=== PATIENT | female | born 1950 | race Caucasian/White ===

== ENCOUNTER 2017-02-04 20:33 | Inpatient (IN) | payer MEDICARE ==
[~2017-02-04] VITALS: Ht 162.6 cm; Wt 90.9 kg
[~2017-02-04 20:33] MED LIST: ESTR0.5T; MEDR2.5T7 PO
[2017-02-04 20:46] VITALS: BP 150/106; PULSE 109; RESP 18; O2SAT 100
[2017-02-04] MEDS ORDERED: 0.9% Sodium Chloride 1,000 ML IV ONE (21:04)
[2017-02-04] MEDS ORDERED: Ondansetron 2 mg/mL 2 mL Inj IVPUSH ONE (21:05)
--- NOTE | 2017-02-04 21:09 | ED.REPORT ---
HPI-Abd Pain F 40 and Over Date of Service Feb 04, 2017 ED Provider: Javi Richmond MD Pt is a generally healthy 66 y/o female w/ a hx of presumed SBO presenting to the ED c/o abdominal pain onset 12:00 today. She c/o associated nausea, vomiting , back pain, shaking. She was able to pass a small amount of gas today. Pt denies fever, chills. The patient had similar symptoms 1 year ago and was diagnosed with what she says was likely an SBO. Abdominal surgeries: cholecystectomy Nursing Notes Stated Complaint: ABDOMINAL PAIN Chief Complaint: Female Abdominal Pain Nursing Notes Reviewed: Yes Allergies: Coded Allergies: amoxicillin (Verified Allergy, Unknown, 02/04/17) clavulanic acid (Verified Allergy, Unknown, 02/04/17) erythromycin base (Verified Adverse Reaction, Severe, nausea,vomitting, ) Scheduled Medroxyprogesterone (Medroxyprogesterone) 2.5 Mg Tablet 2.5 MG PO DAILY Miscellaneous Medications Estradiol (Estradiol) 0.5 Mg Tablet General Time Seen by MD: 20:43 Chief Complaint Abdominal pain Hx Obtained From: Patient Arrived By: Walk-in Sudden in Onset?: No Onset Occurred: 5 - 8 hours ago Symptom Duration: Since onset Progression since Onset: Waxes and wanes Location: : Diffuse Quality: Painful Severity: Current: Moderate Severity: Maximum: Moderate Recent Healthcare: Previous diagnosis Similar Sx Previous: Yes Past Medical History Past Medical History Hx presumable SBO Denies others Past Surgical History Reports: Cholecystectomy, Tonsillectomy Smoking History Never Smoker Social History Alcohol Use: "Social" Drug Use: Denies drug use Ambulatory Status Independent Review of Systems Constitutional: Denies: Chills, Fever GI: Reports: Abdominal pain, Nausea, Vomiting Complete sys rev & neg: except as marked. Neurologic: Reports: Shaking Physical Exam Vital Signs Vital Signs (First) Date Time Temp Pulse Resp B/P Pulse Ox O2 Delivery O2 Flow Rate FiO2 02/04/17 20:46 36.7 109 18 150/106 100 Room Air Initial VS: Reviewed, Vital signs abnormal Head / Eyes: Atraumatic, Normocephalic, PERRL ENT: Mucous membranes moist, Conjunctiva normal, No scleral icterus Neck: Supple, Full range of motion Extremities: Vascular intact, Neuro intact, No swelling Skin: Warm, Dry, No cyanosis Neurologic: Alert, Oriented, Nonfocal Psychiatric: Mood/affect normal, Behavior normal, Normal thought content General/Constitutional: Awake, Alert, No acute distress, Cooperative, Not toxic appearing Appearance / Presentation: Positive: Uncomfortable Respiratory / Chest: Breath sounds NL, Breath sounds = bilat, No respiratory distress, No rales, No rhonchi, No wheezing, No stridor Cardiovascular: Heart rate NL, Regular rhythm, Heart sounds NL, No gallop, No murmurs, No rubs, Cap refill not delayed, Peripheral circulation NL Abdomen: Atraumatic, Soft, No guarding, No rebound, No palpable mass Tenderness/Guarding/Rebound: Positive: Tender diffuse (mild) Bowel Sounds / Distention: Positive: Bowel sounds hypoactive (mild), Bowel sounds tympanitic (mild), Distention mild Back: Full range of motion, Painless range of motion Interpretation & Diagnostics Lab Results Interpretation Result Diagram: 02/04/17210902/04/172109 Test 02/04/17 21:10 02/04/17 21:40 White Blood Count 13.5th/mm3 (3.8-10.1) Red Blood Count 4.70mil/mm3 (3.90-5.20) Hemoglobin 11.6g/dL (12.0-15.6) Hematocrit 36.9% (35.0-46.0) Mean Corpuscular Volume 78.5fL (81-100) Mean Corpuscular Hemoglobin 24.7pg (27.0-35.0) Mean Corpuscular Hemoglobin Concent 31.4% (32.0-37.0) Red Cell Distribution Width 14.5% (12.3-15.4) Platelet Count 424bil/L (150-400) Neutrophils (%) (Auto) 79.0% (40-74) Lymphocytes (%) (Auto) 13.7% (14-46) Monocytes (%) (Auto) 5.3% (4-12) Eosinophils (%) (Auto) 1.6% (0-5) Basophils (%) (Auto) 0.3% (0-3) Sodium Level 141mEq/L (134-144) Potassium Level 3.9mEq/L (3.5-5.2) Chloride Level 104mEq/L (97-108) Carbon Dioxide Level 22mmol/L (18-29) Blood Urea Nitrogen 18mg/dL (8-27) Creatinine 0.64mg/dL (0.57-1.00) Estimat Glomerular Filtration Rate 132mL/min (>59) Glucose Level 139mg/dL (60-99) Calcium Level 9.2mg/dL (8.5-10.1) Magnesium Level 2.2mg/dL (1.6-2.6) Total Bilirubin 0.4mg/dL (0.0-1.2) Aspartate Amino Transf (AST/SGOT) 13U/L (0-50) Alanine Aminotransferase (ALT/SGPT) 10U/L (0-32) Alkaline Phosphatase 130U/L (25-165) Total Protein 7.5g/dL (6.4-8.4) Albumin 4.2g/dL (3.4-5.0) Lipase 14U/L (13-60) Hold Monzon Top Tube Received (Received) Hold Urine Received (Received) ECG Interpretation Time: 23:23 Interpreted by: ED physician Normal ECG Interpretation: Normal ECG w/ rate of... (91), Normal rate, Normal sinus rhythm, No acute ischemic changes, Normal QRS, Normal axis, Normal intervals, No change from prior ECGs, Adequate tracing CT Abd / Pelvis Interpretation Impression: Mechanical small bowel obstruction noted with transition point somewhere in the right lower quadrant. Minimal ascites. No ectopic gas. 7 cm single dimension cystic lesion in the left ovary. Other findings above. Interpreted by Verito Pacheco MD Study type: Abdominal CT IV contrast Interpretation / Wet Read by: Interpret - Radiologist Re-Eval/Medical Decision Med Decision/Clinical Course In summary, the patient is a generally healthy 66-year-old female with history of remote cholecystectomy and small bowel obstruction approximately one year ago which was medically managed presents to the emergency department with vomiting, abdominal discomfort, inability to pass flatus and concerned that she may be developing another bowel obstruction. Here in the emergency department the patient was afebrile with stable vital signs and examination as above which was notable for mildly distended abdomen and decreased/high-pitched bowel sounds. Meds given: IV fluids, Zofran, Dilaudid, LR 100 mL/hr Labs notable as below: CBC: Leukocytosis of 13.5, HCT of 36.9 CMP: Unremarkable, LFTs and lipase within normal limits EKG: Normal ECG w/ rate of... (91), Normal rate, Normal sinus rhythm, No acute ischemic changes, Normal QRS, Normal axis, Normal intervals, No change from prior ECGs, Adequate tracing CT abd/pelvis: Impression: Mechanical small bowel obstruction noted with transition point somewhere in the right lower quadrant. Minimal ascites. No ectopic gas. 7 cm single dimension cystic lesion in the left ovary. Other findings above. Given above findings and clinical picture consistent with small bowel obstruction a nasogastric tube was placed. The patient was made NPO and placed on maintenance fluid. Patient was discussed with general surgery Dr. Berger who agreed to admit the patient. Patient remained comfortable and in no apparent distress and was admitted for further management. Re-Evaluation/Progress : Time of Eval: 23:33 Re-Evaluation/Progress Note: Pt rechecked. Informed pt of need for admission. Pt understands and agrees with plan for admission. All questions addressed. Consultation : Referral / Consult Name: Everett Berger MD Consulted With: Surgeon Call Returned at: 23:38 Formula Technician: Will see patient, Agrees with eval, Agrees with plan, Accepts admit Counseled Regarding: Diagnosis, Lab results, Need for admission Discharge & Departure Primary Impression: SBO (small bowel obstruction) Additional Impressions: Vomiting in adult patient Abdominal pain Abdominal location: unspecified location Qualified Code: R10.9 - Unspecified abdominal pain History of small bowel obstruction History of cholecystectomy Leukocytosis Leukocytosis type: unspecified Qualified Code: D72.829 - Elevated white blood cell count, unspecified Dehydration Disposition: ADMITTED TO HOSPITAL Discharge Condition All VS Reviewed: Yes Condition: Stable Referrals: NOPCP (PCP) Scribe Attestation Portions of this note were transcribed by Shawn Shaffer. I, Dr. Richmond personally performed the history, physical exam and medical decision-making; I reviewed and confirmed the accuracy of the information in the transcribed note. Signed by Avel Card, 02/04/172129 Javi Richmond MD Feb 04, 2017 21:09 SHAWN SHAFFER Feb 04, 2017 21:10
[2017-02-04 21:34] LABS: BASOPHILS % (AUTO) 0.3 % (0-3); EOSINOPHILS % (AUTO) 1.6 % (0-5); MONOCYTES % (AUTO) 5.3 % (4-12); Mean Corpuscular Hemoglobin 24.7 pg (27.0-35.0); Mean Corpuscular Volume 78.5 fL (81-100); Platelet Count 424 bil/L (150-400)
[2017-02-04 21:49] LABS: Magnesium 2.2 mg/dL (1.6-2.6)
[2017-02-04] MEDS ORDERED: HYDROmorphone 0.5 mg/0.5 mL iSecure Syringe IVPUSH ONE ×2 (21:55→23:20)
[2017-02-04 21:57] VITALS: BP 148/84; PULSE 95; RESP 20; O2SAT 98
[2017-02-04] MEDS: Lactated Ringer's 1,000 ML IV SCH (23:19)
[2017-02-04] MEDS: MetoCLOpramide 5 mg/mL 2 mL Inj IVPUSH PRN (23:35)
[2017-02-05] MEDS: MetoCLOpramide 5 mg/mL 2 mL Inj IVPUSH PRN ×2 (00:59→04:48)
[2017-02-05 01:10] VITALS: BP 161/82; PULSE 93; RESP 18; O2SAT 92
[2017-02-05] MEDS: Ondansetron 2 mg/mL 2 mL Inj IVPUSH PRN ×3 (01:45→10:40)
[2017-02-05] MEDS: HYDROmorphone 0.5 mg/0.5 mL iSecure Syringe IVPUSH PRN ×2 (02:19→04:41)
[2017-02-05] MEDS: Lactated Ringer's 1,000 ML IV SCH ×5 (02:19→21:38)
--- NOTE | 2017-02-05 03:11 | NUR ---
admit to floor from ED. NGT to continuous suction with minimal output. Patient still with nausea and heaves. Zofran given with little effect. Abdominal pain rated 7 and IV dilaudid 0.5mg given. Pain reduced to 6. IVF's infusing / patient NPO.
[2017-02-05 04:52] VITALS: BP 158/79; PULSE 90; RESP 18; O2SAT 97
--- NOTE | 2017-02-05 07:17 | HP ---
[address] [address] HISTORY AND PHYSICAL PATIENT: NORI PEÑA : 1950 MR#: [id number] ADMIT: 02/04/2017 JOB ID: [id number] CHIEF COMPLAINT: SBO. HISTORY OF PRESENT ILLNESS: The patient is a 66-year-old female, who presented to the emergency department last night due to abdominal pain, nausea and vomiting. The patient states that she had breakfast and lunch yesterday and this was followed by upper abdominal indigestion. Subsequently, she had upper abdominal pain and had nausea and vomiting after arrival to the emergency department. She last had a bowel movement yesterday. She had a similar episode approximately one year ago, and she was treated at [facility]. They did a small bowel followthrough, and her episode resolved without much intervention. Currently, she is in her hospital bed room with an NG tube, and she is still feeling nauseous and still having retching despite the NG tube. Workup last night in the emergency department showed an elevated white blood count of 13.5, lipase was [address] scan preliminary findings suggesting mechanical small-bowel obstruction noted with transition point somewhere in the right lower quadrant with minimal ascites. The patient has had a prior history of laparoscopic cholecystectomy by Dr. Everett Berger. PAST MEDICAL HISTORY: Laparoscopic cholecystectomy and tonsillectomy. MEDICATIONS AT HOME: Include estradiol and medroxyprogesterone. ALLERGIES: 1. AMOXICILLIN. 2. ERYTHROMYCIN BASE. SOCIAL HISTORY: The patient lives in [place]. She has a partner. She has three children. She does not smoke. FAMILY HISTORY: Positive for breast cancer, myasthenia gravis and multiple sclerosis. REVIEW OF SYSTEMS: Positive for the epigastric abdominal pain and nausea, vomiting and indigestion. All other systems reviewed were negative. PHYSICAL EXAMINATION: The patient is currently in the hospital bed. Slightly uncomfortable with nausea and retching. An NG tube is in place. Her BMI is 34.4, temperature 36.9, blood pressure 158/79, pulse is 90, respirations 18. Head is normocephalic, atraumatic. There is no scleral icterus. Neck is supple. Heart is regular rate. Lungs are clear. Abdomen is obese but it is rather soft and nontender at this moment. There is definitely no peritoneal signs on exam. There are no visible scars on her abdomen. Extremities show no clubbing and no cyanosis. Neurologically, patient is awake and alert and answers appropriately. She looks uncomfortable due to the ongoing nausea and retching. LABORATORY EXAMINATION: Today shows a white blood count of 13.5, hematocrit 36.9, platelet count is 424. Sodium is 141, potassium 3.9, creatinine 0.64. Total bilirubin 0.4. Lipase of 14. I do not have the official CT reading but from the ED doc's dictation it suggests mechanical small bowel obstruction. ASSESSMENT: This is a 66-year-old female with a likely episode of small bowel obstruction. The patient is currently n.p.o. with an NG tube in place. I will get some abdominal x-rays for follow up today. Hopefully, her small bowel obstruction will resolve without surgical intervention. I might consider ordering a Gastrografin challenge via her NG tube. We will repeat her labs in the morning. Her current abdominal exam is not worrisome for peritonitis.
--- NOTE | 2017-02-05 08:02 | NUR ---
Nausea , vomiting At start of shift pt c/o nausea and reported that she vomited. Emesis was approximately 100 mL of greenish fluid. Pt also reported pain was close to 10/10. Called surgeon, Dr King, to request additional anti-emetic medication. Pt had already been given Reglan and Zofran, with little relief. Dr King instructed me to advance the NG tube a couple of inches. Order for abdominal x-rays have been entered. He wants to see x-rays before proceeding with additional medications. Order obtained for IVP morphine. Care continues Addendum: 02/05/17 at 1410 by CRICKET LEDESMA RN Pt experienced another episode of emesis after having her abdominal x-rays. Emesis was 100 mL of greenish fluid. Pt continues to be nauseated. Called surgeon to request an order for phenergan. Also administered Gastrografin through pt's NG tube. Tube now disconnected from suction.
--- NOTE | 2017-02-05 09:02 | DRSVH ---
PROCEDURE: CT ABDOMEN AND PELVIS WITH CONTRAST ([id number]) INDICATIONS: abd pain TECHNIQUE: After the administration of intravenous contrast, 5 mm thick sections acquired from the diaphragm to the symphysis. 5 mm coronal and sagittal reformats were acquired. For radiation dose reduction, the following was used: automated exposure control, adjustment of mA and/or kV according to patient siz e. COMPARISON: [facility], US, PELVIC COMPLETE, 02/25/2016, 8:27. [facility], CT, ABDOMEN/PEL VIS WITH CONTRAST, 02/25/2016, 7:09. FINDINGS: Image quality: Excellent. ABDOMEN: Lung bases: Lung bases are clear. Heart size is normal. Solid organs: Liver and spleen are normal in size and enhancement. Gallbladder has been removed. B iliary system is non dilated. Pancreas enhances normally. No adrenal nodules. Kidneys demonstrate normal size and enhancement, without hydronephrosis. Peritoneum and bowel: Bowel loops demonstrate normal wall thickness. Proximal small bowel loops show some fluid. The appearance is consistent with a partial probably chronic small bowel obstruction tra nsition point is suspected to be approximately series 3 image 26 in the right lower quadrant No free fluid or air. Nodes and vessels: No retroperitoneal or mesenteric adenopathy by size criteria. Aorta and inferior vena cava are normal in size. Miscellaneous: No ventral hernias. PELVIS: Genitourinary: Bladder wall thickness is normal. Previous ultrasound shows the 7.5 cm fluid density to be a cyst in the left adnexa. It is unchanged since the previous CT in February of 2016. Miscellaneous: No inguinal hernias or adenopathy. Bones: No suspicious bony lesions. No vertebral body compression fractures. IMPRESSION: Small bowel obstruction probably chronic and partial. Cause is not appreciated. This site of obstruction is series 3 image 26 in the right lower quadrant. Persistent 7.5 cm cystic structure in the left adnexa. This is unchanged over the past year. Previous cholecystectomy. Dictated by: David Xiong M.D. on 02/05/2017 at 8:31 this report corresponds to the findings of the preliminary NSR report. Approved by: David Xiong M.D. on 02/05/2017 at 9:00
[2017-02-05 10:06] VITALS: BP 150/79; PULSE 87; RESP 17; O2SAT 96
--- NOTE | 2017-02-05 11:20 | NUR ---
HARMONY signed by pt
--- NOTE | 2017-02-05 11:41 | DRSVH ---
PROCEDURE: X-RAY ABDOMEN WITH ERECT AND/OR DECUBITUS VIEWS ([id number]) INDICATIONS: f/u sbo TECHNIQUE: 2 views of the abdomen were acquired. COMPARISON: None. FINDINGS: Surgical changes and devices: There is an NG tube into the stomach. Bowel: No pneumoperitoneum. The bowel gas pattern is abnormal. Mildly distended small bowel loops w ith air fluid levels are present in the left abdomen. Soft tissues: No masses; visualized solid organ contours appear normal in size. No suspicious abdom inal calcifications. Bones: No suspicious bony abnormalities. IMPRESSION: Small bowel obstruction thought to be partial. Dictated by: David Xiong M.D. on 02/05/2017 at 11:37 Approved by: David Xiong M.D. on 02/05/2017 at 11:39
[2017-02-05] MEDS ORDERED: CeFAZolin 2 Gm/50 mL D5W Duplex Bag IV ONE (13:50)
[2017-02-05] MEDS: Promethazine Inj 25 MG in Dextrose 5%-Pha MIX 50 ML IV PRN ×2 (14:00→16:48)
[2017-02-05 14:36] LABS: INR 1.02 ratio
[2017-02-05 15:06] VITALS: BP 156/86; PULSE 94; RESP 17; O2SAT 98
[2017-02-05 20:06] VITALS: BP 144/84; PULSE 90; RESP 17; O2SAT 96
--- NOTE | 2017-02-05 22:15 | DRSVH ---
PROCEDURE: X-RAY GASTROGRAFIN CHALLENGE, 1 VIEW ABDOMEN INDICATIONS: gastrograffin challenge via NGT TECHNIQUE: One view of the abdomen acquired. COMPARISON: None. FINDINGS: Surgical changes and devices: None. Bowel: Bowel gas pattern is normal. Soft tissues: No suspicious abdominal calcifications. Visualized solid organ contours appear normal in size. Bones: No suspicious bony lesions. IMPRESSION: Gastrografin has moved through the small bowel and is into the colon. Distended loops ar e not appreciated on the current film. Small bowel obstruction on the CT scan is felt to be resolved. Dictated by: David Xiong M.D. on 02/05/2017 at 22:12 Approved by: David Xiong M.D. on 02/05/2017 at 22:14
--- NOTE | 2017-02-06 00:26 | NUR ---
Gastrografin Complete No further emesis. Pt reports having small hard BMs, followed by Mod soft BM. Xray confirms gastrografin has advanced to colon, per Dr King pt can have clear liquids and NG tube DCd. Pt discussed having prior episodes of GI distress/constipation, she had a granola cereal recently and thinks that may be the cause of this distress. Care continues Addendum: 02/06/17 at 0621 by KEITH ORTEZ RN Pt rolled over in bed and DCd IV. No new IV access at this time as no need for IV medications, Pt tolerating clear liquids PO.
[2017-02-06 04:29] LABS: BASOPHILS % (AUTO) 0.2 % (0-3); EOSINOPHILS % (AUTO) 0.7 % (0-5); MONOCYTES % (AUTO) 8.8 % (4-12); Mean Corpuscular Hemoglobin 24.1 pg (27.0-35.0); Mean Corpuscular Volume 78.9 fL (81-100); NEUTROPHILS % (AUTO) 72.8 % (40-74); Platelet Count 323 bil/L (150-400)
[2017-02-06] MEDS: Lactated Ringer's 1,000 ML IV SCH ×2 (05:19→07:20)
[2017-02-06 05:48] VITALS: BP 112/86; PULSE 76; RESP 16; O2SAT 93
--- NOTE | 2017-02-06 06:36 | PCM.PNSURG ---
Subjective Visit Information: Reason for Visit SBO Surgery/Surgery Date Post-Op Day # Date of Admission: Feb 04, 2017 at 23:57 Hospital Day # Subjective: pt underwent gastrograffin challenge and contrast made it to colon, NG removed overnight, so far tolerated clears and been having loose BM's, no abd pain Objective Objective Arousable in bed Abd: obese, but soft and nontender Vital Sign- Last 8 Hours Date Time Temp Pulse Resp B/P Pulse Ox O2 Delivery O2 Flow Rate FiO2 02/06/17 05:48 36.7 76 16 112/86 93 Room Air Intake and Output- Last 8 Hour 02/06/17 Cumulative From/Thru 07:00 02/04/17 20:46 - 02/06/17 06:29 Intake Total 960 ml 3461 ml Output Total 500 ml 1850 ml Balance 460 ml 1611 ml Intake Oral 460 ml 460 ml IV Total 500 ml 3001 ml Output Urine Total 500 ml 1650 ml Gastric Drainage Total 0 ml Emesis 200 ml # Bowel Movements 0 Result Diagram: 02/06/17 0410 02/04/17 2110 Assessment & Plan Impression SBO, clinically improving Problems: Plan Advance diet as tolerated May discharge home later today if no n/v and no abd pain. Tk King MD Feb 06, 2017 06:36
--- NOTE | 2017-02-06 09:47 | DRSVH ---
PROCEDURE: X-RAY KUB ([id number]) INDICATIONS: f/u SBO TECHNIQUE: One view of the abdomen acquired. COMPARISON: [facility], CR, XR GASTROGRAF CHALLENG 1VW ABD, 02/05/2017, 21:17. Merged with [facility], CR, XR ABD W ERECT + OR DECUB 2 VW, 02/05/2017, 10:59. FINDINGS: Surgical changes and devices: None. Bowel: Residual oral contrast material seen throughout the colon. There is no definite bowel dilatati on or transition point seen. No free air. There is moderate stool Soft tissues: No suspicious abdominal calcifications. Visualized solid organ contours appear normal in size. Bones: No suspicious bony lesions. IMPRESSION: No definite bowel obstruction or transition point identified at this time. Residual oral contrast mat erial seen in the colon. If the patient's symptoms do not improve, continued followup with repeat abd ominal series radiographs could be performed. Dictated by: Bobby Peña M.D. on 02/06/2017 at 9:43 Approved by: Bobby Peña M.D. on 02/06/2017 at 9:45
--- NOTE | 2017-02-06 14:07 | PCM.DISURG ---
Surgical Discharge Instruction Date of Service Feb 06, 2017 Dates of Hospitalization Date of Hospital Admission Feb 04, 2017 at 23:57 Providers Admitting Physician: Everett Berger MD Primary Care Physician: Sindy King Attending Physician: Everett Berger MD Discharge Diagnosis Discharge Diagnosis Small bowel obstruction Diet Discharge Diet: No restrictions Activity Discharge Activity-General: No restrictions Dressing and Incisional Care Hygiene: May shower Additional Instructions Discharge Instructions Rx: none OK to take home meds. Follow Up Plan Follow Up Plan F/U with own PCP next week Call your provider for: Increasing abdominal pain, Nausea, Vomiting Tk King MD Feb 06, 2017 14:07
--- NOTE | 2017-02-06 15:30 | NUR ---
Social Work: Initial Assessment/Discharge D: EMR reviewed. Pt is a 66 y/o female admitted for SBO per H&P. SW met with pt at bedside to conduct initial assessment. Pt was alert and oriented x3. SW explained role and wrote phone number on white board. Pt's insurance is [employer] and PCP is NIKOLE Sawyer. Pt confirmed she has completed DPOA/advanced directive ppw and SW encouraged pt to provide a copy to the hospital. Pt gave verbal consent to contact [facility]a [facility], for discharge planning. Pt has no hx of HH or a SNF. Pt does not have LTC insurance or VA benefits. Pt is independent with ADLs. Pt does not own or use any DME. Pt drives. Pt is independent at baseline. Pt lives with her SO in [place] in a split level home with 8 steps to enter and 13 steps to the basement. Pt confirmed [facility] will provide transportation via POV today. states that pt is medically stable and does not have any SW needs at this time. [facility] does not anticipate any discharge needs but will continue to follow until if needs arise. A: Pt who is independent at baseline. P: Pt confirmed Richa [facility] ([phone]) will provide transportation via POV today. states that pt is medically stable and does not have any SW needs at this time. [facility] does not anticipate any discharge needs but will continue to follow until if needs arise. MASOOD Corona Addendum: 02/06/17 at 1536 by CHRIS MORALES Amended: Links added.
--- NOTE | 2017-02-06 15:44 | NUR ---
discharged home with friend. Pts symptoms are completely resolved. Eating/drinking OK, ambulatory, no abd pain or nausea. She already has an appt scheduled for next week with her PCP. Pt understands she needs to call her doctor if she has a return of her symptoms
--- NOTE | 2017-02-07 16:48 | PCM.DC.SUR ---
Discharge Summary Date of Service: Feb 07, 2017 Date of Hospital Admission: Feb 04, 2017 at 23:57 Date of Discharge: 02/06/2017 Diagnosis at Time of Discharge Small bowel obstruction Problems: Brief History and Physical: The patient is a 66-year-old female, who presented to the emergency department overnight 02/04/17 due to abdominal pain, nausea and vomiting. The patient stated that she had breakfast and lunch and this was followed by upper abdominal indigestion. Subsequently, she had upper abdominal pain and had nausea and vomiting after arrival to the emergency department. Prior to admission her last bowel movement was on 02/03/2017. She had a similar episode approximately one year ago, and she was treated at [facility]. They did a small bowel follow through, and her episode resolved without much intervention. A NG tube was placed on admission. Workup in the emergency department showed an elevated white blood regular scan preliminary findings suggesting mechanical small-bowel obstruction noted with transition point somewhere in the right lower quadrant with minimal ascites. The patient has had a prior history of laparoscopic cholecystectomy by Dr. Everett Berger. Hospital Course: Patient was admitted for recurrent small bowel obstruction & had an uneventful nonoperative hospital course resolving on its own after undergoing a Gastrografin challenge to colon with several loose BM's and resolved abdominal pain without nausea or vomiting the day of discharge. The patient was tolerating advanced by mouth diet and fluids without difficulty, and advancing activity consistent with disposition home on hospital day #2. Disposition: Home in stable condition. Follow-up Plan: Follow-up with General Surgery as scheduled or indicated. Estradiol (Estradiol) 0.5 Mg Tablet (Reported) Medroxyprogesterone (Medroxyprogesterone) 2.5 Mg Tablet 2.5 MG PO DAILY ( Reported) copies to: Sindy King Scott PA-C Feb 07, 2017 16:48
== END 2017-02-06 15:45 | disposition home or self-care (01) | DRG 390 ==
LOC: SED 20:33 → OSC 23:57
PROVIDERS: ADMIT Surgery; ATTEND Surgery
DX: K56.60 Unspecified intestinal obstruction (principal); Z90.49 Acquired absence of other specified parts of digestive tract